=== PATIENT | female | born 1975 | race Caucasian/White ===

== ENCOUNTER → 2016-06-27 | Outpatient (CLI) | payer MEDICARE ==
[~2016-06-27] MED LIST: CARBAMAZEPINE200 MG PO; CLARITIN 10MG T10 MG PO; CYCLOBENZAPRINE10 MG PO; HALDOL 1 MG TAB1 MG PO; HUMALOG 10100 UNITS/ SC; HUMALOG100 UNIT/1 SQ; KLONOPIN TAB 00.5 MG PO; LIPITOR TAB 2020 MG PO; LISINOPRIL10 MG PO; LORCET HD 10-31 EACH PO; NEURONTIN 400400 MG PO; OMEPRAZOLE40 MG PO; PHENERGAN 25 MG25 M1 PO; REQUIP1 MG PO; TRESIBA SC; TRICOR145 MG PO; ZOFRAN ODT8 MG PO
[2016-06-27 18:03] LABS: BUN/CREATININE RATIO 17 (0-10)
== END ==
LOC: LAB 16:58
PROVIDERS: Family Medicine
DX: E78.2 Mixed hyperlipidemia (principal)
CPT/HCPCS: 36415; 80053; 80061

== ENCOUNTER → 2016-07-06 | Outpatient (CLI) | payer MEDICARE, OTHER | LOC: RAD 14:32 | DX: J20.9 Acute bronchitis, unspecified (principal) | CPT/HCPCS: 71020 ==

== ENCOUNTER 2016-10-17 21:45 | Emergency (ER) | payer MEDICARE, OTHER ==
[~2016-10-17 21:45] MED LIST changes: -CARBAMAZEPINE200 MG PO; -CLARITIN 10MG T10 MG PO; -CYCLOBENZAPRINE10 MG PO; -HALDOL 1 MG TAB1 MG PO; -HUMALOG 10100 UNITS/ SC; -HUMALOG100 UNIT/1 SQ; -KLONOPIN TAB 00.5 MG PO; -LIPITOR TAB 2020 MG PO; -LISINOPRIL10 MG PO; -LORCET HD 10-31 EACH PO; -NEURONTIN 400400 MG PO; -OMEPRAZOLE40 MG PO; -PHENERGAN 25 MG25 M1 PO; -TRESIBA SC; -ZOFRAN ODT8 MG PO
[2016-10-18 01:01] LABS: HEMOGLOBIN 13.3 gm/dl (12.3-15.3); RED BLOOD COUNT 4.22 M/UL (4.00-5.10); WHITE BLOOD COUNT 8.5 K/UL (4.5-11.0)
[2016-12-04] MEDS ORDERED: CYCLOBENZAPRINE10 MG PO (00:26)
[2016-12-04] MEDS ORDERED: KLONOPIN TAB 00.5 MG PO (00:27)
[2016-12-04] MEDS ORDERED: LIPITOR TAB 2020 MG PO (00:27)
[2016-12-04] MEDS ORDERED: TRESIBA SC (00:28)
[2016-12-04] MEDS ORDERED: CLARITIN 10MG T10 MG PO (00:29)
[2016-12-04] MEDS ORDERED: OMEPRAZOLE40 MG PO (00:29)
[2016-12-04] MEDS ORDERED: HALDOL 1 MG TAB1 MG PO (00:29)
[2016-12-04] MEDS ORDERED: HUMALOG 10100 UNITS/ SC (00:31)
[2016-12-04] MEDS ORDERED: ZOFRAN ODT8 MG PO (00:34)
[2016-12-04] MEDS ORDERED: PHENERGAN 25 MG25 M1 PO (00:34)
[2016-12-04] MEDS ORDERED: LORCET HD 10-31 EACH PO (00:35)
[2016-12-04] MEDS ORDERED: NEURONTIN 400400 MG PO (13:55)
[2016-12-04] MEDS ORDERED: CARBAMAZEPINE200 MG PO (14:02)
[2016-12-04] MEDS ORDERED: LISINOPRIL10 MG PO (15:55)
[2016-12-04] MEDS ORDERED: HUMALOG100 UNIT/1 SQ (15:58)
== END 2016-10-18 07:18 | disposition home or self-care (01) ==
LOC: ER1 21:45
PROVIDERS: Emergency Medicine
DX: N10 Acute pyelonephritis (principal); Z88.5 Allergy status to narcotic agent; Z88.8 Allergy status to other drugs, medicaments and biological substances; N20.0 Calculus of kidney
CPT/HCPCS: 36415; 74176; 80053; 81001; 82009; 82800; 83690; 84703; 85025; 96361; 96374; 96375; 99284; J0696; J1885; J2270; J2405; J7030; J7050

== ENCOUNTER → 2020-08-25 | Outpatient (CLI) | payer MEDICARE, OTHER ==
[~2020-08-25] MED LIST changes: +AUGMENTIN 500-500 MG PO; +BACTROBAN OINT22 GM TOP; +BENADRYL25 MG PO; +CARBAMAZEPINE200 MG PO; +CLARITIN 10MG T10 MG PO; +COMPOUND CREAM TOP; +CYCLOBENZAPRINE10 MG PO; +DEX4 GLUCOSE4 GM PO; +DOXYCYCLINE HY100 M2 PO; +FISH OIL 1,0001 EACH PO; +HALDOL 1 MG TAB1 MG PO; +HUMALOG SC; +HUMALOG100 UNIT/1 SQ; +HYDROCODON-ACE1 EAC4 PO; +INDERAL TAB 1010 MG PO; +KLONOPIN TAB 00.5 MG PO; +LIPITOR TAB 2020 MG PO; +LISINOPRIL10 MG PO; +LORCET HD 10-31 EACH PO; +NEURONTIN800 MG PO; +OMEGA 3 FISH O1 EACH PO; +OMEPRAZOLE40 MG PO; +PHENERGAN 25 MG25 M1 PO; +PROAIR HFA8.5 GM INH; +SULFAMETHOXAZO1 EACH PO; +TRESIBA SC; +ZOFRAN ODT 4 MG4 MG PO
[2020-08-25 18:39] LABS: HEMOGLOBIN 12.4 gm/dl (12.3-15.3); RED BLOOD COUNT 3.95 M/UL (4.00-5.10); WHITE BLOOD COUNT 7.2 K/UL (4.5-11.0)
[2020-08-25 19:20] LABS: BUN/CREATININE RATIO 27 (0-10)
[2020-08-27 09:13] LABS: CREATININE, URINE 63.6 mg/dL (Not Estab.)
== END ==
LOC: LAB 17:18
PROVIDERS: Family Medicine
DX: M25.571 Pain in right ankle and joints of right foot (principal); E55.9 Vitamin D deficiency, unspecified; E78.2 Mixed hyperlipidemia; R30.0 Dysuria; E11.9 Type 2 diabetes mellitus without complications; Z79.4 Long term (current) use of insulin; M19.071 Primary osteoarthritis, right ankle and foot; M25.771 Osteophyte, right ankle; R93.6 Abnormal findings on diagnostic imaging of limbs
CPT/HCPCS: 73610; 80053; 80061; 81001; 82043; 82570; 85027; 87086

== ENCOUNTER → 2020-11-07 | Outpatient (CLI) | payer MEDICARE, OTHER | LOC: CT 10-24 08:00 | DX: R31.29 Other microscopic hematuria (principal); N20.0 Calculus of kidney; Z87.442 Personal history of urinary calculi ==

== ENCOUNTER → 2021-04-13 | Outpatient (CLI) | payer MEDICARE, OTHER ==
[2021-04-13 13:00] LABS: HEMOGLOBIN 11.7 gm/dl (12.3-15.3); RED BLOOD COUNT 3.69 M/UL (4.00-5.10)
[2021-04-13 14:01] LABS: BUN/CREATININE RATIO 16 (0-10)
== END ==
LOC: LAB 11:19
PROVIDERS: Family Medicine
DX: E78.2 Mixed hyperlipidemia (principal); E55.9 Vitamin D deficiency, unspecified; D64.9 Anemia, unspecified; I10 Essential (primary) hypertension; R80.9 Proteinuria, unspecified
CPT/HCPCS: 80053; 80061; 82570; 82728; 83540; 83550; 83735; 84156; 85027; 85045

== ENCOUNTER → 2021-07-21 | Outpatient (CLI) | payer MEDICARE, OTHER ==
[~2021-07-21] MED LIST changes: +ASPIRIN CHEWABL81 MG PO; +LIPITOR40 MG PO
[2021-07-21 15:52] LABS: HEMOGLOBIN 11.1 gm/dl (12.3-15.3); RED BLOOD COUNT 3.63 M/UL (4.00-5.10); WHITE BLOOD COUNT 9.8 K/UL (4.5-11.0)
[2021-07-21 16:18] LABS: BUN/CREATININE RATIO 18 (0-10)
[2021-07-22 07:11] LABS: VITAMIN D, 25-HYDROXY 20.2 ng/mL (30.0-100.0)
[2021-07-22 08:14] LABS: HCV ANTIBODY <0.1 (0.0-0.9)
== END ==
LOC: MAMO 07-12 13:30 → US 07-12 14:00
PROVIDERS: Family Medicine
DX: R25.2 Cramp and spasm (principal); D50.9 Iron deficiency anemia, unspecified; E55.9 Vitamin D deficiency, unspecified; E78.2 Mixed hyperlipidemia; Z11.59 Encounter for screening for other viral diseases; I12.9 Hypertensive chronic kidney disease with stage 1 through stage 4 chronic kidney disease, or unspecified chronic kidney disease; N18.4 Chronic kidney disease, stage 4 (severe); N28.9 Disorder of kidney and ureter, unspecified; Z12.31 Encounter for screening mammogram for malignant neoplasm of breast; I77.89 Other specified disorders of arteries and arterioles
CPT/HCPCS: 36415; 77063; 77067; 80053; 80061; 81001; 82570; 82728; 83540; 83550; 83735; 84100; 84156; 85025; 85045; 86803; 93922; 93925

== ENCOUNTER → 2021-07-28 | Outpatient (CLI) | payer MEDICARE, OTHER | LOC: LAB 17:48 | DX: R82.90 Unspecified abnormal findings in urine (principal) | CPT/HCPCS: 81001; 87086 ==

== ENCOUNTER → 2021-09-08 | Outpatient (CLI) | payer MEDICARE, OTHER ==
[2021-09-08 16:58] LABS: HEMOGLOBIN 11.4 gm/dl (12.3-15.3); RED BLOOD COUNT 3.63 M/UL (4.00-5.10); WHITE BLOOD COUNT 9.3 K/UL (4.5-11.0)
[2021-09-08 17:28] LABS: BUN/CREATININE RATIO 24 (0-10)
[2021-09-12 05:09] LABS: VITAMIN D, 25-HYDROXY 14.8 ng/mL (30.0-100.0)
[2021-09-12 14:13] LABS: A/G RATIO 0.8 (0.7-1.7); ALBUMIN 3.1 g/dL (2.9-4.4); ALPHA-1-GLOBULIN 0.3 g/dL (0.0-0.4); ALPHA-2-GLOBULIN 1.5 g/dL (0.4-1.0); BETA GLOBULIN 1.4 g/dL (0.7-1.3); GAMMA GLOBULIN 1.1 g/dL (0.4-1.8); GLOBULIN, TOTAL 4.2 g/dL (2.2-3.9); IMMUNOGLOBULIN A, QN, SERUM 424 mg/dL (87-352); IMMUNOGLOBULIN G, QN, SERUM 961 mg/dL (586-1602); IMMUNOGLOBULIN M, QN, SERUM 89 mg/dL (26-217); M-SPIKE Not Observed g/dL (Not Observed); PROTEIN, TOTAL, SERUM 7.3 g/dL (6.0-8.5)
== END ==
LOC: LAB 16:01
PROVIDERS: Internal Medicine Nephrology
DX: N28.9 Disorder of kidney and ureter, unspecified (principal); R80.9 Proteinuria, unspecified; E55.9 Vitamin D deficiency, unspecified
CPT/HCPCS: 36415; 80069; 81001; 82550; 82570; 82652; 82784; 83970; 84155; 84156; 84165; 84550; 85025; 85027; 86334; 86335

== ENCOUNTER → 2021-09-12 | Outpatient (CLI) | payer MEDICARE, OTHER | LOC: KOH-I 09-05 13:00 | DX: N28.9 Disorder of kidney and ureter, unspecified (principal) | CPT/HCPCS: 76775 ==